=== PATIENT | male | born 1940 | race Caucasian/White ===

== ENCOUNTER 2016-12-29 02:52 | Emergency (ER) | payer MEDICARE ==
[~2016-12-29 02:52] MED LIST: ASPI81 PO; CIPR0.3S LEFT EAR; CIPR500T4 PO; COQ10; FISH1000 PO; HYDR-2768 PO; METO100T PO; STOOL SOFTNER OTC PO; TAB-TAB PO; TELM1TAB56 PO; ZOCO40TA PO; hydrocodone PO
[2016-12-29 02:54] VITALS: BP 213/104; PULSE 68; RESP 18; TEMP 97.8; O2SAT 96
[2016-12-29 03:03] VITALS: BP 209/105; PULSE 78; RESP 16; TEMP 98.6; O2SAT 97
[2016-12-29 03:12] VITALS: PULSE 74; RESP 16; O2SAT 99
[2016-12-29] MEDS ORDERED: SODIUM CHLORIDE 0.9% FLUSH 10 ML FLUSH IVF PRN (03:15)
[2016-12-29] MEDS ORDERED: ALUMINUM/MAGNESIUM/SIMETH 30 ML CUP PO ONE (03:15)
[2016-12-29] MEDS ORDERED: ASPIRIN 81 MG CHEW TAB PO ONE (03:15)
[2016-12-29] MEDS ORDERED: LIDOCAINE VISCOUS 2% SOLN 15 ML UDC PO ONE (03:15)
--- NOTE | 2016-12-29 03:34 | RADRPT ---
EXAM DATE/TIME: 12/29/2016 03:21 [facility] COMPARISON: No previous studies available for comparison. INDICATIONS : Pt having Mid-sternal chest pain x 1 day. MEDICAL HISTORY : None. SURGICAL HISTORY : None. ENCOUNTER: Initial ACUITY: 1 day PAIN SCORE: 6/10 LOCATION: Bilateral chest FINDINGS: The lungs are clear without infiltrate, nodule, or mass. There is no appreciable pleural effusion fo r technique. Heart and mediastinum are unremarkable. CONCLUSION: No acute cardiopulmonary disease. Caren Roman MD on December 29, 2016 at 3:32 Board Certified Radiologist. This report was verified electronically.
[2016-12-29 03:39] LABS: AUTOMATED NEUTROPHIL # 7.1 TH/MM3 (1.8-7.7); BASOPHIL # 0.1 TH/MM3 (0-0.2); EOSINOPHIL # 0.6 TH/MM3 (0-0.4); EOSINOPHIL % 3.6 % (0.0-4.0); LYMPHOCYTE # 6.3 TH/MM3 (1.0-4.8); MEAN CELL VOLUME 91.4 FL (80.0-100.0); MEAN CORPUSCULAR HEMOGLOBIN 32.4 PG (27.0-34.0); MEAN CORPUSCULAR HGB CONC 35.4 % (32.0-36.0); MONO % 7.8 % (0.0-8.0); NEUT % 46.6 % (16.0-70.0); PLATELET COUNT 278 TH/MM3 (150-450); RED BLOOD COUNT 4.82 MIL/MM3 (4.50-5.90); RED CELL DISTRIBUTION WIDTH 13.7 % (11.6-17.2); WHITE BLOOD COUNT 15.3 TH/MM3 (4.0-11.0)
[2016-12-29] MEDS ORDERED: MORPHINE SULFATE 4 MG/ML INJ IV PUSH ONE (03:45)
[2016-12-29] MEDS ORDERED: ONDANSETRON HCL 4 MG/2 ML VIAL IV PUSH ONE (03:45)
[2016-12-29 03:46] LABS: HEMO FLAGS AUTO DIFF
[2016-12-29 04:10] LABS: ALT (GPT) 36 U/L (12-78); ANION GAP 5 MEQ/L (5-15); AST (GOT) 28 U/L (15-37); BICARBONATE 30.7 MEQ/L (21.0-32.0); BLOOD UREA NITROGEN 17 MG/DL (7-18); CHLORIDE 103 MEQ/L (98-107); GLOMERULAR FILTRATION RATE 50 ML/MIN (>89); MAGNESIUM 2.1 MG/DL (1.5-2.5); POTASSIUM 3.6 MEQ/L (3.5-5.1); SODIUM (NA) 139 MEQ/L (136-145)
[2016-12-29 04:12] LABS: ALKALINE PHOSPHATASE 62 U/L (45-117); CREATINE KINASE 201 U/L (39-308); INDIRECT BILIRUBIN 0.8 MG/DL (0.0-0.8); TOTAL BILIRUBIN ADULT 0.9 MG/DL (0.2-1.0)
[2016-12-29] MEDS ORDERED: DICY10 PO (04:19)
--- NOTE | 2016-12-29 04:19 | PD ---
HPI . Epigastric pain Chief Complaint: Chest Pain Time Seen by Provider: 03:09 Travel History International Travel<30 days: No Contact w/Intl Traveler<30days: No Traveled to known affect area: No History of Present Illness HPI Patient presents with a chief complaint of epigastric discomfort. He states that he had a rather large dinner tonight. At about 11:00, he was getting ready to go to bed but had abdominal pain. He states he took some Gas-X and went to sleep. He was awakened at about 1:00 in the morning with severe abdominal pain. It has been associated with some belching and some nausea and vomiting. Pain was markedly relieved by running hot water over his chest and abdomen while in the shower. He states the pain is exacerbated by deep breathing. He has not been running a fever. He denies any shortness of breath. He denies any urinary tract symptoms. He is concerned that this might be his gallbladder. He denies any previous similar history. PFSH Past Medical History Arthritis: Yes Blood Disorders: No Cancer: No Cardiovascular Problems: No High Cholesterol: Yes Diabetes: Yes (METFORMIN AND GLIPERIDE) Patient Takes Glucophage: Yes Diminished Hearing: Yes Endocrine: No Glaucoma: No Genitourinary: No Hepatitis: No Hiatal Hernia: No Hypertension: Yes Immune Disorder: No Musculoskeletal: Yes Neurologic: No Psychiatric: No Reproductive: No Respiratory: No Immunizations Current: Yes Thyroid Disease: No Past Surgical History Ear Surgery: Yes (LEFT MASTOID) Oral Surgery: Yes (tonsillectomy) Pacemaker: No Other Surgery: Yes Social History Alcohol Use: Yes (OCC BEER) Tobacco Use: No Substance Use: No Allergies-Medications (Allergen,Severity, Reaction): Coded Allergies: No Known Allergies (Unverified , 12/29/16) Reported Meds & Prescriptions Reported Meds & Active Scripts Active Review of Systems Except as stated in HPI: all other systems reviewed are Neg General / Constitutional: No: Fever, Chills Cardiovascular: No: Chest Pain or Discomfort Respiratory: No: Shortness of Breath Gastrointestinal: Positive: Nausea, Vomiting, Abdominal Pain, No: Diarrhea Genitourinary: No: Urgency, Frequency, Dysuria Physical Exam Narrative GENERAL: Patient is awake and alert and in no acute distress. SKIN: Warm and dry. HEAD: Atraumatic. Normocephalic. EYES: Pupils equal and round. Extraocular movements are intact. ENT: No nasal bleeding or discharge. Mucous membranes pink and moist. NECK: Trachea midline. Neck is supple. CARDIOVASCULAR: Regular rate and rhythm. Heart sounds are normal. RESPIRATORY: No accessory muscle use. Lungs are clear with full air movement throughout. GASTROINTESTINAL: Abdomen soft. Bowel sounds present. Mild epigastric discomfort. No right upper quadrant tenderness. No guarding or rebound. Nondistended. MUSCULOSKELETAL: No obvious deformities. No edema. NEUROLOGICAL: Awake and alert. No obvious cranial nerve deficits. Motor grossly within normal limits. Normal speech. PSYCHIATRIC: Appropriate mood and affect; insight and judgment normal. Data Data Last Documented VS Vital Signs Date Time Temp Pulse Resp B/P Pulse Ox O2 Delivery O2 Flow Rate FiO2 12/29/16 03:12 99 Nasal Cannula 2 12/29/16 03:12 74 16 12/29/16 03:03 98.6 209/105 Orders Basic Metabolic Panel (Bmp) (12/29/16 03:08) Ckmb (Isoenzyme) Profile (12/29/16 03:08) Complete Blood Count With Diff (12/29/16 03:08) Magnesium (Mg) (12/29/16 03:08) Troponin I (12/29/16 03:08) Chest, Single Ap (12/29/16 03:08) Ecg Monitoring (12/29/16 03:08) Iv Access Insert/Monitor (12/29/16 03:08) Oximetry (12/29/16 03:08) Aspirin Chew (Aspirin Chew) (12/29/16 03:15) Sodium Chloride 0.9% Flush (Ns Flush) (12/29/16 03:15) Al-Mag Hy-Si 40-40-4 Mg/Ml Liq (Mag-Al P (12/29/16 03:15) Lidocaine 2% Viscous (Xylocaine 2% Visco (12/29/16 03:15) Ondansetron Inj (Zofran Inj) (12/29/16 03:45) Morphine Inj (Morphine Inj) (12/29/16 03:45) Hepatic Functional Panel (12/29/16 03:15) Lipase (12/29/16 03:15) Labs Laboratory Tests Test 12/29/16 03:15 White Blood Count 15.3 TH/MM3 Red Blood Count 4.82 MIL/MM3 Hemoglobin 15.6 GM/DL Hematocrit 44.0 % Mean Corpuscular Volume 91.4 FL Mean Corpuscular Hemoglobin 32.4 PG Mean Corpuscular Hemoglobin 35.4 % Concent Red Cell Distribution Width 13.7 % Platelet Count 278 TH/MM3 Mean Platelet Volume 8.3 FL Neutrophils (%) (Auto) 46.6 % Lymphocytes (%) (Auto) 41.0 % Monocytes (%) (Auto) 7.8 % Eosinophils (%) (Auto) 3.6 % Basophils (%) (Auto) 1.0 % Neutrophils # (Auto) 7.1 TH/MM3 Lymphocytes # (Auto) 6.3 TH/MM3 Monocytes # (Auto) 1.2 TH/MM3 Eosinophils # (Auto) 0.6 TH/MM3 Basophils # (Auto) 0.1 TH/MM3 CBC Comment AUTO DIFF Sodium Level 139 MEQ/L Potassium Level 3.6 MEQ/L Chloride Level 103 MEQ/L Carbon Dioxide Level 30.7 MEQ/L Anion Gap 5 MEQ/L Blood Urea Nitrogen 17 MG/DL Creatinine 1.39 MG/DL Estimat Glomerular Filtration 50 ML/MIN Rate Random Glucose 142 MG/DL Calcium Level 9.1 MG/DL Magnesium Level 2.1 MG/DL Direct Bilirubin 0.1 MG/DL Aspartate Amino Transf 28 U/L (AST/SGOT) Alanine Aminotransferase 36 U/L (ALT/SGPT) Albumin 4.0 GM/DL Lipase 243 U/L MDM Medical Decision Making Medical Screen Exam Complete: Yes Emergency Medical Condition: Yes Interpretation(s) EKG shows a sinus rhythm with no acute ischemic change. Differential Diagnosis Differential diagnosis of abdominal pain includes but is not limited to gastritis, pancreatitis, hepatitis, gastroenteritis, gallbladder disease, constipation, urinary retention, UTI, peptic ulcer disease, diverticulitis or appendicitis Narrative Course Patient presents complaining with epigastric discomfort associated with belching and nausea/vomiting. CBC & BMP Diagram 12/29/16 03:15 LFTs are normal. Troponin is normal. Lipase is normal. This patient's most likely etiology for his epigastric pain is GI. His pain has been completely relieved with a GI cocktail. Diagnosis Primary Impression: Epigastric pain Patient Instructions: Epigastric Pain (ED), General Instructions Med/Other Pt SpecificInfo: Prescription(s) given Scripts Dicyclomine (Bentyl)10 Mg Cap10 Mg PO QID #15 CAP Ref 0 Prov:Laurie Jacques MD 12/29/16 Condition: Stable Laurie Jacques MD Dec 29, 2016 04:19
[2016-12-29 04:25] LABS: CKMB 2.9 NG/ML (0.5-3.6)
[2016-12-29 04:33] LABS: PLATELET ESTIMATE SMEAR NORMAL (NORMAL); PLATELET MORPHOLOGY NORMAL (NORMAL); SCAN/DIFF AUTO DIFF CONFIRMED
[2016-12-29 04:40] VITALS: BP 150/79; PULSE 68; RESP 16; O2SAT 97
--- NOTE | 2016-12-29 14:16 | EKG ---
Date Performed: 12/29/2016 Time Performed: 03:02:32 PTAGE: 76 years EKG: Sinus rhythm NORMAL ECG Since PREVIOUS TRACING 02/08/2009, no significant change. PREVIOUS TRACIN02/08/2009 15.14 DOCTOR: Jairo Correia Interpretating Date/Time 12/29/2016 14:14:23
== END 2016-12-29 04:44 | disposition home or self-care (01) ==
LOC: NEPC 02:52
DX: R10.13 Epigastric pain (principal); E78.00 Pure hypercholesterolemia, unspecified; E11.9 Type 2 diabetes mellitus without complications; I10 Essential (primary) hypertension; R11.2 Nausea with vomiting, unspecified
CPT/HCPCS: 71010; 80048; 80076; 82550; 82552; 83690; 83735; 84484; 85025; 93005; 99284

== ENCOUNTER 2017-06-30 22:17 | Observation (INO) | payer MEDICARE ==
[~2017-06-30] VITALS: Ht 185.4 cm; Wt 125.0 kg
[~2017-06-30 22:17] MED LIST changes: -ASPI81 PO; -CIPR0.3S LEFT EAR; -CIPR500T4 PO; -COQ10; +DICY10 PO; -FISH1000 PO; -HYDR-2768 PO; -METO100T PO; -STOOL SOFTNER OTC PO; -TAB-TAB PO; -TELM1TAB56 PO; -ZOCO40TA PO; -hydrocodone PO
[2017-06-30] MEDS ORDERED: IOHEXOL 350 MG/ML 10 ML VIAL (for RAD DIAG) IVCONTRAST ONE (22:18)
[2017-06-30 22:21] VITALS: BP 215/102; PULSE 63; RESP 18; TEMP 98; O2SAT 96
[2017-06-30] MEDS ORDERED: METO100T PO (22:40)
[2017-06-30] MEDS ORDERED: MULTTAB67 PO (22:40)
[2017-06-30] MEDS ORDERED: OMEGCAP PO (22:40)
[2017-06-30] MEDS ORDERED: ROSU10 PO (22:40)
[2017-06-30] MEDS ORDERED: PYRI100T PO (22:40)
[2017-06-30] MEDS ORDERED: LISI10TA3 PO (22:40)
[2017-06-30] MEDS ORDERED: VITA2000 PO (22:40)
[2017-06-30] MEDS ORDERED: METF1000 PO (22:40)
[2017-06-30] MEDS ORDERED: HYDR12.57 PO (22:40)
[2017-06-30] MEDS ORDERED: ASPI81CH6 CHEW (22:40)
[2017-06-30] MEDS ORDERED: TRAD5TAB PO (22:40)
[2017-06-30] MEDS ORDERED: ZANT300T PO (22:40)
[2017-06-30 23:22] VITALS: BP 174/84; PULSE 68; RESP 16; O2SAT 96
[2017-06-30] MEDS ORDERED: PANTOPRAZOLE SODIUM 40 MG VIAL IVP ONE (23:30)
[2017-06-30] MEDS ORDERED: ALUMINUM/MAGNESIUM/SIMETH 30 ML CUP PO ONE (23:30)
[2017-06-30] MEDS ORDERED: LIDOCAINE VISCOUS 2% SOLN 15 ML UDC PO ONE (23:30)
[2017-06-30] MEDS ORDERED: SODIUM CHLORIDE 0.9% FLUSH 10 ML FLUSH IVF PRN (23:30)
[2017-06-30] MEDS ORDERED: ONDANSETRON HCL 4 MG/2 ML VIAL IVP ONE (23:30)
--- NOTE | 2017-06-30 23:37 | PD ---
HPI Chief Complaint: Abdominal Pain Time Seen by Provider: 23:23 Travel History International Travel<30 days: No Contact w/Intl Traveler<30days: No Traveled to known affect area: No History of Present Illness HPI 76-year-old male here for evaluation of epigastric abdominal pain. The patient reports similar symptoms in December of this year, reporting that he presented to the emergency department and symptoms resolved after a GI cocktail. Pain started at around noon today after eating lunch. He is unable to describe the pain, but states it is constant, does not radiate, no modifying factors. He denies chest pain or dyspnea. No history of abdominal surgeries. He has become nauseous and had 2 episodes of vomiting. Denies history of cardiac disease. No fevers or chills. PFSH Past Medical History Arthritis: Yes Blood Disorders: No Cancer: No Cardiovascular Problems: No High Cholesterol: Yes Diabetes: Yes (METFORMIN AND GLIPERIDE) Patient Takes Glucophage: No Diminished Hearing: Yes Endocrine: No Glaucoma: No Genitourinary: No Hepatitis: No Hiatal Hernia: No Hypertension: Yes Immune Disorder: No Musculoskeletal: Yes Neurologic: No Psychiatric: No Reproductive: No Respiratory: No Immunizations Current: Yes Thyroid Disease: No Tetanus Vaccination: Unknown Influenza Vaccination: No ?: Not Past Surgical History Ear Surgery: Yes (LEFT MASTOID) Oral Surgery: Yes (tonsillectomy) Pacemaker: No Other Surgery: Yes Social History Alcohol Use: Yes (OCC BEER) Tobacco Use: No Substance Use: No Allergies-Medications (Allergen,Severity, Reaction): Coded Allergies: No Known Allergies (Unverified Adverse Reaction, Unknown, 06/30/17) Reported Meds & Prescriptions Reported Meds & Active Scripts Active Reported Multiple Vitamin 1 Tab 1 Tab PO DAILY [place]-3 Fish Oil/Vitamin (Fish Oil-Cholecalciferol) 1,000-1,000 Mg Cap 1 Cap PO DAILY Vitamin D3 (Cholecalciferol) 2,000 Unit Cap 2,000 Units PO DAILY Vitamin B-6 (Pyridoxine HCl) 100 Mg Tab 100 Mg PO DAILY Aspirin Low Dose (Aspirin) 81 Mg Chew 81 Mg CHEW DAILY Zantac (Ranitidine HCl) 300 Mg Tab 300 Mg PO DAILY Tradjenta (Linagliptin) 5 Mg Tab 5 Mg PO DAILY Metformin (Metformin HCl) 1,000 Mg Tab 1,000 Mg PO BIDPC Metoprolol Tartrate 100 Mg Tab 100 Mg PO BID Hydrochlorothiazide 12.5 Mg Cap 12.5 Mg PO DAILY Lisinopril 10 Mg Tab 10 Mg PO DAILY Crestor (Rosuvastatin Calcium) 10 Mg Tab 10 Mg PO DAILY Review of Systems Except as stated in HPI: all other systems reviewed are Neg Physical Exam Narrative GENERAL: Well-developed, well-nourished, comfortable, no apparent distress. SKIN: Focused skin assessment warm/dry. HEAD: Atraumatic. Normocephalic. EYES: Pupils equal and round. No scleral icterus. No injection or drainage. ENT: No nasal bleeding or discharge. Mucous membranes pink and moist. NECK: Trachea midline. No JVD. CARDIOVASCULAR: Regular rate and rhythm. RESPIRATORY: No accessory muscle use. Clear to auscultation. Breath sounds equal bilaterally. GASTROINTESTINAL: Abdomen soft, nondistended. Mild epigastric tenderness without peritoneal signs. Normal bowel sounds. No hernias. MUSCULOSKELETAL: No obvious deformities. No clubbing. No cyanosis. No edema. NEUROLOGICAL: Awake and alert. No obvious cranial nerve deficits. Motor grossly within normal limits. Normal speech. PSYCHIATRIC: Appropriate mood and affect; insight and judgment normal. Data Data Last Documented VS Vital Signs Date Time Temp Pulse Resp B/P (MAP) Pulse Ox O2 Delivery O2 Flow Rate FiO2 07/01/17 01:46 66 16 132/64 (86) 94 Room Air 06/30/17 22:21 98.0 Orders Orders Electrocardiogram (06/30/17 23:28) Ckmb (Isoenzyme) Profile (06/30/17 23:28) Complete Blood Count With Diff (06/30/17 23:28) Comprehensive Metabolic Panel (06/30/17 23:28) Prothrombin Time / Inr (Pt) (06/30/17 23:28) Act Partial Throm Time (Ptt) (06/30/17 23:28) Troponin I (06/30/17 23:28) Lipase (06/30/17 23:28) Chest, Single Ap (06/30/17 23:28) Ecg Monitoring (06/30/17 23:28) Iv Access Insert/Monitor (06/30/17 23:28) Oximetry (06/30/17 23:28) Sodium Chloride 0.9% Flush (Ns Flush) (06/30/17 23:30) Ondansetron Inj (Zofran Inj) (06/30/17 23:30) Pantoprazole Inj (Protonix Inj) (06/30/17 23:30) Al-Mag Hy-Si 40-40-4 Mg/Ml Liq (Mag-Al P (06/30/17 23:30) Lidocaine 2% Viscous (Xylocaine 2% Visco (06/30/17 23:30) CKMB (06/30/17 23:55) CKMB% (06/30/17 23:55) Morphine Inj (Morphine Inj) (07/01/17 00:45) Ct Abd/Pel W Iv Contrast(Rout) (07/01/17 ) Aspirin Chew (Aspirin Chew) (07/01/17 00:45) Dicyclomine (Bentyl) (07/01/17 00:45) Iohexol 350 Inj (Omnipaque 350 Inj) (06/30/17 22:18) Labs Laboratory Tests Test 06/30/17 23:55 White Blood Count 13.8 TH/MM3 Red Blood Count 4.69 MIL/MM3 Hemoglobin 15.0 GM/DL Hematocrit 43.7 % Mean Corpuscular Volume 93.2 FL Mean Corpuscular Hemoglobin 31.9 PG Mean Corpuscular Hemoglobin Concent 34.2 % Red Cell Distribution Width 13.4 % Platelet Count 253 TH/MM3 Mean Platelet Volume 7.9 FL Neutrophils (%) (Auto) 65.6 % Lymphocytes (%) (Auto) 24.0 % Monocytes (%) (Auto) 7.3 % Eosinophils (%) (Auto) 2.6 % Basophils (%) (Auto) 0.5 % Neutrophils # (Auto) 9.1 TH/MM3 Lymphocytes # (Auto) 3.3 TH/MM3 Monocytes # (Auto) 1.0 TH/MM3 Eosinophils # (Auto) 0.4 TH/MM3 Basophils # (Auto) 0.1 TH/MM3 CBC Comment DIFF FINAL Differential Comment Prothrombin Time 10.6 SEC Prothromb Time International Ratio 1.0 RATIO Activated Partial Thromboplast Time 31.5 SEC Blood Urea Nitrogen 15 MG/DL Creatinine 1.38 MG/DL Random Glucose 147 MG/DL Total Protein 7.6 GM/DL Albumin 3.8 GM/DL Calcium Level 9.1 MG/DL Alkaline Phosphatase 54 U/L Aspartate Amino Transf (AST/SGOT) 23 U/L Alanine Aminotransferase (ALT/SGPT) 33 U/L Total Bilirubin 0.9 MG/DL Sodium Level 140 MEQ/L Potassium Level 3.8 MEQ/L Chloride Level 103 MEQ/L Carbon Dioxide Level 29.4 MEQ/L Anion Gap 8 MEQ/L Estimat Glomerular Filtration Rate 50 ML/MIN Total Creatine Kinase 198 U/L Creatine Kinase MB 3.1 NG/ML Troponin I LESS THAN 0.02 NG/ML Lipase 206 U/L MDM Medical Decision Making Medical Screen Exam Complete: Yes Emergency Medical Condition: Yes Medical Record Reviewed: Yes Interpretation(s) EKG: Sinus, rate 65, leftward axis, normal intervals, LVH, no acute ischemic abnormality. Differential Diagnosis Gastritis, peptic ulcer disease, pancreatitis, hepatobiliary disease, ACS Narrative Course Initial vital signs show heart rate 53, blood pressure 215/102, pulse ox 96% on room air, oral temp of 98F. Patient's blood pressure eventually improved to 132/64 with resolution of pain. CBC: WBC 13.8, hemoglobin 15, hematocrit 43.7, platelets 253. CMP is markable for creatinine 1.3, GFR 50, random glucose 147. Lipase is 206. Cardiac enzymes are negative. Patient was given a GI cocktail and Protonix and continued to complain of pain. Because of this he was given a dose of morphine. I have also ordered a CT abdomen pelvis to rule out an intra-abdominal etiology for his pain. Chest x-ray shows no acute disease. CT abdomen pelvis: CONCLUSION: 1. Small high density gallstones layering dependently in the gallbladder with no wall thickening or inflammatory change. 2. Mild hepatic steatosis. There is a small benign low attenuation lesion in the right lobe. 3. Unremarkable appearing bowel gas pattern. Patient was made aware of all findings. His pain finally resolved after morphine. On initial exam he only had some mild epigastric tenderness. There is certainly no right upper quadrant tenderness or Hayes sign. Although he has gallstones, I am more concerned about a possible cardiac etiology for the patient's pain. He does have LVH on his EKG, no acute ischemic changes. He was given a full dose of aspirin. He'll be admitted to the chest pain center for further cardiac evaluation. He is amenable to this plan. Diagnosis Primary Impression: Chest pain Qualified Codes: R07.9 - Chest pain, unspecified Additional Impression: Gallstones Admitting Information Admitting Physician Requests: Khadar Delgado MD Jun 30, 2017 23:37
[2017-06-30 23:38] VITALS: O2SAT 95
--- NOTE | 2017-06-30 23:57 | RADRPT ---
EXAM DATE/TIME: 06/30/2017 23:42 [facility] COMPARISON: CHEST SINGLE AP, December 29, 2016, 3:21. INDICATIONS : Chest pain, lower portion of chest. MEDICAL HISTORY : None. SURGICAL HISTORY : None. ENCOUNTER: Initial ACUITY: 1 day PAIN SCORE: 0/10 LOCATION: Bilateral chest FINDINGS: A single view of the chest demonstrates the lungs to be symmetrically aerated without evidence of mas s, infiltrate or effusion. The cardiomediastinal contours are unremarkable. Osseous structures are intact. CONCLUSION: No acute disease. Tad Palomo MD on June 30, 2017 at 23:55 Board Certified Radiologist. This report was verified electronically.
[2017-07-01] VITALS (9 sets, daily range): BP systolic 90–180; BP diastolic 54–86; PULSE 54–66; RESP 16–22; TEMP 97.7–97.9; O2SAT 92–95
[2017-07-01 00:15] LABS: AUTOMATED NEUTROPHIL # 9.1 TH/MM3 (1.8-7.7); BASOPHIL # 0.1 TH/MM3 (0-0.2); BASOPHIL % 0.5 % (0.0-2.0); EOSINOPHIL # 0.4 TH/MM3 (0-0.4); EOSINOPHIL % 2.6 % (0.0-4.0); HEMATOCRIT 43.7 % (39.0-51.0); HEMO FLAGS DIFF FINAL; LYMPHOCYTE # 3.3 TH/MM3 (1.0-4.8); MEAN CELL VOLUME 93.2 FL (80.0-100.0); MEAN CORPUSCULAR HEMOGLOBIN 31.9 PG (27.0-34.0); MEAN CORPUSCULAR HGB CONC 34.2 % (32.0-36.0); MONO % 7.3 % (0.0-8.0); NEUT % 65.6 % (16.0-70.0); PLATELET COUNT 253 TH/MM3 (150-450); RED BLOOD COUNT 4.69 MIL/MM3 (4.50-5.90); RED CELL DISTRIBUTION WIDTH 13.4 % (11.6-17.2); WHITE BLOOD COUNT 13.8 TH/MM3 (4.0-11.0)
[2017-07-01 00:23] LABS: APTT (PATIENT) 31.5 SEC (24.3-30.1); PROTHROMBIN TIME - PATIENT 10.6 SEC (9.8-11.6)
[2017-07-01 00:33] LABS: BLOOD UREA NITROGEN 15 MG/DL (7-18); CHLORIDE 103 MEQ/L (98-107); POTASSIUM 3.8 MEQ/L (3.5-5.1); SODIUM (NA) 140 MEQ/L (136-145)
[2017-07-01 00:36] LABS: TOTAL BILIRUBIN ADULT 0.9 MG/DL (0.2-1.0)
[2017-07-01] MEDS ORDERED: DICYCLOMINE HCL 10 MG CAP PO ONE (00:45)
[2017-07-01] MEDS ORDERED: MORPHINE SULFATE 4 MG/ML INJ IV PUSH ONE (00:45)
[2017-07-01] MEDS ORDERED: ASPIRIN 81 MG CHEW TAB CHEW ONE (00:45)
[2017-07-01 00:49] LABS: ALT (GPT) 33 U/L (12-78); ANION GAP 8 MEQ/L (5-15); AST (GOT) 23 U/L (15-37); BICARBONATE 29.4 MEQ/L (21.0-32.0); GLOMERULAR FILTRATION RATE 50 ML/MIN (>89)
[2017-07-01 00:53] LABS: ALKALINE PHOSPHATASE 54 U/L (45-117); CKMB 3.1 NG/ML (0.5-3.6); CREATINE KINASE 198 U/L (39-308)
--- NOTE | 2017-07-01 01:49 | RADRPT ---
EXAM DATE/TIME: 07/01/2017 01:11 [facility] COMPARISON: No previous studies available for comparison. INDICATIONS : Upper abdominal pain. IV CONTRAST: 100 cc Omnipaque 350 (iohexol) IV ORAL CONTRAST: No oral contrast ingested. RADIATION DOSE: 22.06 CTDIvol (mGy) ; Patient body habitus MEDICAL HISTORY : Hypertension. Diabetes mellitus type 2. SURGICAL HISTORY : None. ENCOUNTER: Initial ACUITY: 1 day PAIN SCALE: 6/10 LOCATION: abdomen TECHNIQUE: Volumetric scanning of the abdomen and pelvis was performed. Using automated exposure control and adjustment of the mA and/or kV according to patient size, radiation dose was kept as low as reasonably achievable to obtain optimal diagnostic quality images. DICOM format image data is av ailable electronically for review and comparison. FINDINGS: LOWER LUNGS: The visualized lower lungs are clear. LIVER: Homogeneous density with a single tiny 6 mm low attenuation lesion in the right lobe. Ther e is no dilation of the biliary tree. There is mild hepatic steatosis. There are several small high d ensity gallstones layering dependently in the gallbladder. SPLEEN: Normal size without lesion. PANCREAS: Within normal limits. KIDNEYS: Normal in size and shape. There is no mass, stone or hydronephrosis. ADRENAL GLANDS: Within normal limits. VASCULAR: There is no aortic aneurysm. BOWEL/MESENTERY: No oral contrast was given limiting sensitivity. The stomach, small bowel, and c olon demonstrate no acute abnormality. There is no free intraperitoneal air or fluid. ABDOMINAL WALL: Within normal limits. RETROPERITONEUM: There is no lymphadenopathy. BLADDER: No wall thickening or mass. REPRODUCTIVE: Within normal limits. INGUINAL: There is no lymphadenopathy or hernia. MUSCULOSKELETAL: Status post kyphoplasty in the upper lumbar spine. There are degenerative change s.. CONCLUSION: 1. Small high density gallstones layering dependently in the gallbladder with no wall thickening or i nflammatory change. 2. Mild hepatic steatosis. There is a small benign low attenuation lesion in the right lobe. 3. Unremarkable appearing bowel gas pattern. Tad Palomo MD on July 01, 2017 at 1:44 Board Certified Radiologist. This report was verified electronically.
[2017-07-01] MEDS ORDERED: SODIUM CHLORIDE 0.9% FLUSH 10 ML FLUSH IV FLUSH PRN (02:00)
[2017-07-01 03:48] LABS: CREATINE KINASE 167 U/L (39-308)
[2017-07-01 03:59] LABS: CKMB 2.8 NG/ML (0.5-3.6)
[2017-07-01 06:47] LABS: CREATINE KINASE 188 U/L (39-308)
[2017-07-01 07:00] LABS: CKMB 2.8 NG/ML (0.5-3.6)
--- NOTE | 2017-07-01 08:45 | EKG ---
Date Performed: 07/01/2017 Time Performed: 06:06:21 PTAGE: 76 years EKG: SINUS BRADYCARDIA MINIMAL VOLTAGE CRITERIA FOR LVH, CONSIDER NORMAL VARIANT BORDERLINE ECG WARNING: DATA QUALITY MAY AFFECT INTERPRETATION- missing lead in V3 -likely lead reversal, clinical c orrelation PREVIOUS TRACING : 07/01/2017 03.47 DOCTOR: Jojo Corrigan Interpretating Date/Time 07/01/2017 08:43:40
--- NOTE | 2017-07-01 08:45 | EKG ---
Date Performed: 07/01/2017 Time Performed: 03:01:05 PTAGE: 76 years EKG: SINUS BRADYCARDIA MODERATE INTRAVENTRICULAR CONDUCTION DELAY MINIMAL VOLTAGE CRITERIA FOR L VH, CONSIDER NORMAL VARIANT BORDERLINE ECG Since PREVIOUS TRACING , no significant change noted PREVIOUS TRACIN06/30/2017 23.32 DOCTOR: Jojo Corrigan Interpretating Date/Time 07/03/2017 07:19:37
[2017-07-01] MEDS ORDERED: SODIUM CHLORIDE 0.9% FLUSH 10 ML FLUSH IV FLUSH SCH (09:00)
--- NOTE | 2017-07-01 11:17 | HHI.HP ---
[facility] Primary Care Physician Jermaine Vargas MD Chief Complaint Abdominal pain History of Present Illness This is a 76-year-old male that presents to ED with a complaint of abdominal pain. Patient points to the epigastric region. Patient states that this began yesterday afternoon about 2 hours after eating a shrimp salad and boiled eggs. This also happened December of this year, he was evaluated in the ED and discharged. Yesterday was the second episode that has happened. It was constant. He was nauseous. He states that GI cocktail and other medications were not helping in the ED. However he states morphine did seem to resolve the symptoms. He states that the area was very tender when the physician pressed on it but that has since resolved. States it also improved after he vomited twice while in the ED. There is no blood in the emesis. Denies blood in stool. Denies chest pain. Denies shortness of breath or diaphoresis. Review of Systems General: Patient denies fevers, chills recent, and recent travel HEENT: Patient denies headache, sore throat, difficulty swallowing. Cardiovascular: Denies chest discomfort as mentioned above. Denies sensation of heart beating rapidly or irregularly. No syncope. Denies diaphoresis. Respiratory: Denies shortness of breath or inspirational chest discomfort. Denies coughing wheezing or hemoptysis. GI: Patient complained of abdominal pain and points to epigastric region. Had nausea with 2 episodes of nonbloody emesis. Denies bloody stools. Denies dark or tarry stools. Denies diarrhea or constipation. Musculoskeletal: Patient denies joint pain or edema. Denies calf pain or edema. Neurovascular: Patient denies numbness, tingling, weakness in extremities. Denies headache. Endocrine: Denies polyuria and polydipsia. Hematologic: Denies easy bruising. Skin: Denies rash or itching. Past Family Social History Allergies: Coded Allergies: No Known Allergies (Unverified Adverse Reaction, Unknown, 06/30/17) Past Medical History Hypertension, lipidemia, diabetes, GERD. Denies known CAD. Past Surgical History Noncontributory. Cannot recall having endoscopy or colonoscopy. Reported Medications Reported Meds & Active Scripts Active Reported Multiple Vitamin 1 Tab 1 Tab PO DAILY [place]-3 Fish Oil/Vitamin (Fish Oil-Cholecalciferol) 1,000-1,000 Mg Cap 1 Cap PO DAILY Vitamin D3 (Cholecalciferol) 2,000 Unit Cap 2,000 Units PO DAILY Vitamin B-6 (Pyridoxine HCl) 100 Mg Tab 100 Mg PO DAILY Aspirin Low Dose (Aspirin) 81 Mg Chew 81 Mg CHEW DAILY Zantac (Ranitidine HCl) 300 Mg Tab 300 Mg PO DAILY Tradjenta (Linagliptin) 5 Mg Tab 5 Mg PO DAILY Metformin (Metformin HCl) 1,000 Mg Tab 1,000 Mg PO BIDPC Metoprolol Tartrate 100 Mg Tab 100 Mg PO BID Hydrochlorothiazide 12.5 Mg Cap 12.5 Mg PO DAILY Lisinopril 10 Mg Tab 10 Mg PO DAILY Crestor (Rosuvastatin Calcium) 10 Mg Tab 10 Mg PO DAILY Active Ordered Medications Current Medications Medications (Trade) Dose Ordered Sig/Marshall Route Start Time Stop Time Status Last Admin (NS Flush) 2 ml UNSCH PRN IVF 06/30/17 23:30 07/01/17 00:54 (NS Flush) 2 ml UNSCH PRN IV FLUSH 07/01/17 02:00 (NS Flush) 2 ml BID IV FLUSH 07/01/17 09:00 07/01/17 09:00 Family History Denies Family history of CAD. Social History Quit smoking 1968 prior that he smoked on average 2 packs service daily for 10 years. Has occasional beer. Denies illicit drugs. He is . Physical Exam Vital Signs Vital Signs Date Time Temp Pulse Resp B/P (MAP) Pulse Ox O2 Delivery O2 Flow Rate FiO2 07/01/17 10:31 62 07/01/17 08:32 97.8 65 22 135/74 (94) 95 07/01/17 08:18 95 21 07/01/17 07:56 97.9 63 18 126/68 (87) 94 07/01/17 04:56 54 07/01/17 03:23 97.7 63 18 90/54 (66) 92 07/01/17 03:08 07/01/17 02:45 95 07/01/17 01:46 66 16 132/64 (86) 94 Room Air 07/01/17 00:43 62 16 180/86 (117) 94 Room Air 06/30/17 23:38 95 Room Air 06/30/17 23:22 16 06/30/17 23:22 68 16 174/84 (114) 96 Room Air 06/30/17 22:21 98.0 63 18 215/102 (139) 96 Physical Exam GENERAL: This is a well-nourished, well-developed patient, in no apparent distress. Patient speaks in clear complete sentences. Patient is pleasant. HEENT: Head is atraumatic and normocephalic. Neck is supple without lymphadenopathy and trachea is midline. No JVD or carotid bruits. CARDIOVASCULAR: Regular rate and rhythm without murmurs, gallops, or rubs. RESPIRATORY: Clear to auscultation. Breath sounds equal bilaterally. No wheezes , rales, or rhonchi. Chest wall is nontender. No use of accessory muscles. GASTROINTESTINAL: Abdomen is nontender, nondistended. Abdomen soft. When specifically pressing epigastric region right upper quadrant, there is no tenderness. He points again to the epigastric area and indicates that is where the pain was present. No longer there. No obvious pulsatile mass or bruit. No CVA tenderness. Strong femoral pulses bilaterally. Normal bowel sounds in all quadrants. MUSCULOSKELETAL: Patient is moving upper and lower extremities freely. No calf tenderness or edema, no Homans sign. Strong pulses in upper and lower extremities. NEUROLOGICAL: Patient is alert and oriented. Cranial nerves 2-12 are grossly intact. No focal deficits and speech is clear. SKIN: No rash and turgor is normal. Laboratory Laboratory Tests Test 06/30/17 23:55 07/01/17 02:20 07/01/17 06:04 White Blood Count 13.8 Red Blood Count 4.69 Hemoglobin 15.0 Hematocrit 43.7 Mean Corpuscular Volume 93.2 Mean Corpuscular Hemoglobin 31.9 Mean Corpuscular Hemoglobin Concent 34.2 Red Cell Distribution Width 13.4 Platelet Count 253 Mean Platelet Volume 7.9 Neutrophils (%) (Auto) 65.6 Lymphocytes (%) (Auto) 24.0 Monocytes (%) (Auto) 7.3 Eosinophils (%) (Auto) 2.6 Basophils (%) (Auto) 0.5 Neutrophils # (Auto) 9.1 Lymphocytes # (Auto) 3.3 Monocytes # (Auto) 1.0 Eosinophils # (Auto) 0.4 Basophils # (Auto) 0.1 CBC Comment DIFF FINAL Differential Comment Prothrombin Time 10.6 Prothromb Time International Ratio 1.0 Activated Partial Thromboplast Time 31.5 Blood Urea Nitrogen 15 Creatinine 1.38 Random Glucose 147 Total Protein 7.6 Albumin 3.8 Calcium Level 9.1 Alkaline Phosphatase 54 Aspartate Amino Transf (AST/SGOT) 23 Alanine Aminotransferase (ALT/SGPT) 33 Total Bilirubin 0.9 Sodium Level 140 Potassium Level 3.8 Chloride Level 103 Carbon Dioxide Level 29.4 Anion Gap 8 Estimat Glomerular Filtration Rate 50 Total Creatine Kinase 198 167 188 Creatine Kinase MB 3.1 2.8 2.8 Troponin I LESS THAN 0.02 LESS THAN 0.02 LESS THAN 0.02 Lipase 206 Result Diagram: 06/30/17 2355 06/30/17 2355 Imaging Last 48 hours Impressions Abdomen/Pelvis CT 07/01/17 0000 Signed Impressions: Service Date/Time: Saturday, July 01, 2017 01:11 - CONCLUSION: 1. Small high density gallstones layering dependently in the gallbladder with no wall thickening or inflammatory change. 2. Mild hepatic steatosis. There is a small benign low attenuation lesion in the right lobe. 3. Unremarkable appearing bowel gas pattern. Tad Palomo MD Chest X-Ray 06/30/17 2328 Signed Impressions: Service Date/Time: Friday, June 30, 2017 23:42 - CONCLUSION: No acute disease. Tad Palomo MD Course EKGs are sinus bradycardia without significant ST segment depressions or elevations. Caprini VTE Risk Assessment Caprini VTE Risk Assessment: Mod/High Risk (score >= 2) Caprini Risk Assessment Model Point Value = 1 Point Value = 2 Point Value = 3 Point Value = 5 Age 41-60 Minor surgery BMI > 25 kg/m2 Swollen legs Varicose veins or History of unexplained or recurrent spontaneous Oral contraceptives or hormone replacement Sepsis (< 1 month) Serious lung disease, including pneumonia (< 1 month) Abnormal pulmonary function Acute myocardial infarction Congestive heart failure (< 1 month) History of inflammatory bowel disease Medical patient at bed rest Age 61-74 Arthroscopic surgery Major open surgery (> 45 min) Laparoscopic surgery (> 45 min) Malignancy Confined to bed (> 72 hours) Immobilizing plaster cast Central venous access Age >= 75 History of VTE Family history of VTE Factor V Leiden Prothrombin [id number] Lupus anticoagulant Anticardiolipin antibodies Elevated serum homocysteine Heparin-induced thrombocytopenia Other congenital or acquired thrombophilia Stroke (< 1 month) Elective arthroplasty Hip, pelvis, or leg fracture Acute spinal cord injury (< 1 month) Prophylaxis Regimen Total Risk Factor Score Risk Level Prophylaxis Regimen 0-1 Low Early ambulation 2 Moderate Order ONE of the following: *Sequential Compression Device (SCD) *Heparin 5000 units SQ BID 3-4 Higher Order ONE of the following medications: *Heparin 5000 units SQ TID *Enoxaparin/Lovenox 40 mg SQ daily (WT < 150 kg, CrCl > 30 mL/min) *Enoxaparin/Lovenox 30 mg SQ daily (WT < 150 kg, CrCl > 10-29 mL/min) *Enoxaparin/Lovenox 30 mg SQ BID (WT < 150 kg, CrCl > 30 mL/min) AND/OR *Sequential Compression Device (SCD) 5 or more Highest Order ONE of the following medications: *Heparin 5000 units SQ TID (Preferred with Epidurals) *Enoxaparin/Lovenox 40 mg SQ daily (WT < 150 kg, CrCl > 30 mL/min) *Enoxaparin/Lovenox 30 mg SQ daily (WT < 150 kg, CrCl > 10-29 mL/min) *Enoxaparin/Lovenox 30 mg SQ BID (WT < 150 kg, CrCl > 30 mL/min) AND *Sequential Compression Device (SCD) Assessment and Plan Assessment and Plan * Abdominal pain: Patient denies chest discomfort. He has had serial cardiac enzymes and EKGs for ruling out purposes. CT of the abdomen and pelvis report small high density gallstones layering dependently in the gallbladder with no wall thickening or inflammatory change. Mild hepatic steatosis. Small benign low attenuation lesion in the right lobe. Unremarkable appearing bowel gas pattern. This was explained to the patient. We will get a stress test on the patient as he likely will need follow-up with GI and possibly general surgery. Patient be discharged home if the stress test was nonischemic with instructions to follow-up with PCP to make arrangements for these follow-ups he should return to ED for worsening symptoms. * Gallstones: Patient to follow-up with PCP referral to GI and possibly general surgeon. * Hypertension: Continue current medication. * Diabetes: Hold metformin for 2 days. Follow diabetic diet. * Hyperlipidemia: Continue current medication. Patient is stable this time. He is agreeable to this plan. Aubrey Young Jul 01, 2017 11:17
[2017-07-01] MEDS ORDERED: FAMOTIDINE 20 MG TAB PO SCH (12:15)
[2017-07-01] MEDS ORDERED: METOPROLOL TARTRATE 100 MG TAB PO SCH (12:15)
[2017-07-01] MEDS ORDERED: ATORVASTATIN 20 MG TAB PO SCH (12:15)
[2017-07-01] MEDS ORDERED: HYDROCHLOROTHIAZIDE 12.5 MG CAP PO SCH (12:15)
[2017-07-01] MEDS ORDERED: LISINOPRIL 10 MG TAB PO SCH (12:15)
--- NOTE | 2017-07-01 12:20 | HHI.DCPOC ---
Discharge Care Plan Diagnosis: (1) Abdominal pain (2) Gallstones (3) GERD (gastroesophageal reflux disease) (4) DM (diabetes mellitus) (5) Hypertension (6) Hyperlipidemia Goals to Promote Your Health DO NOT TAKE METFORMIN FOR TWO DAYS. * To prevent worsening of your condition and complications * To maintain your health at the optimal level Directions to Meet Your Goals Take your medications as prescribed Follow your dietary instruction Follow activity as directed Keep your appointments as scheduled Take your immunizations and boosters as scheduled If your symptoms worsen call your PCP, if no PCP go to Urgent Care Center or Emergency Room Smoking is Dangerous to Your Health. Avoid second hand smoke Call the 24-hour hour crisis hotline for domestic abuse at Aubrey Young Jul 01, 2017 12:20
[2017-07-01] MEDS ORDERED: ASPIRIN 81 MG CHEW TAB CHEW SCH (12:30)
--- NOTE | 2017-07-01 21:37 | TR ---
Date Performed: 07/01/2017 Time Performed: 11:32:59 DOCTOR: Jojo Corrigan DRUG LIST: CLINICAL HISTORY: REASON FOR TEST: REASON FOR ENDING: OBSERVATION: CONCLUSION: HALIMA PROTOCOL ETT. NO CP. TEST STOPPED AFTER EXCEEDING GOAL HR SECONDARY TO SOB AND LEG FATIGUE.Maximum DL=667 % Max HR Achieved=94.0% Maximum AD=891/82 Total Exercise Time=5:59 COMMENTS:
--- NOTE | 2017-07-01 21:38 | EKG ---
Date Performed: 06/30/2017 Time Performed: 23:32:38 PTAGE: 76 years EKG: Sinus rhythm VOLTAGE CRITERIA FOR LVH ABNORMAL ECG Since PREVIOUS TRACING , no significant change noted PREVIOUS TRACIN12/29/2016 03.02 DOCTOR: Jojo Corrigan Interpretating Date/Time 07/01/2017 21:37:49
== END 2017-07-01 13:02 | disposition home or self-care (01) ==
LOC: NEPE 22:17 → NEDA 07-01 01:57 → NEPFCDU 07-01 03:08
PROVIDERS: ADMIT Internal Medicine Cardiovascular Disease; ATTEND Internal Medicine Cardiovascular Disease
DX: R10.13 Epigastric pain (principal); K80.20 Calculus of gallbladder without cholecystitis without obstruction; R07.9 Chest pain, unspecified; K76.0 Fatty (change of) liver, not elsewhere classified; R00.1 Bradycardia, unspecified; R94.31 Abnormal electrocardiogram [ECG] [EKG]; I10 Essential (primary) hypertension; E11.9 Type 2 diabetes mellitus without complications; K21.9 Gastro-esophageal reflux disease without esophagitis; E78.00 Pure hypercholesterolemia, unspecified; H91.90 Unspecified hearing loss, unspecified ear; M19.90 Unspecified osteoarthritis, unspecified site; Z79.899 Other long term (current) drug therapy; Z79.82 Long term (current) use of aspirin; Z87.891 Personal history of nicotine dependence
CPT/HCPCS: 71010; 74177; 80053; 82550; 82552; 83690; 84484; 85025; 85610; 85730; 93005; 93017; 96374; 96375; 99285; C9113; G0378; J2270; J2405; Q9967